=== PATIENT | female | born 1950 | race Caucasian/White ===

== ENCOUNTER → 2023-08-31 08:43 | Outpatient (REF) | payer MEDICARE, OTHER, SELFPAY | LOC: WDC 08:43 | PROVIDERS: ATTENDING PHYSICIAN Surgery; FAMILY PHYSICIAN Internal Medicine | DX: R92.2 Inconclusive mammogram (principal); N64.4 Mastodynia | CPT/HCPCS: 76641 ==

== ENCOUNTER → 2023-10-12 14:41 | Outpatient (REF) | payer MEDICARE, OTHER, SELFPAY | LOC: HWRAD 14:41 | PROVIDERS: ATTENDING PHYSICIAN Internal Medicine | DX: R63.4 Abnormal weight loss (principal); R13.10 Dysphagia, unspecified | CPT/HCPCS: 71046 ==

== ENCOUNTER → 2023-10-16 06:25 | Day surgery (SDC) | payer MEDICARE, OTHER, SELFPAY ==
[2023-10-16 10:50] LABS: Glucose - Point of Care 129 mg/dl (70-99)
== END ==
LOC: GI 06:25
PROVIDERS: ATTENDING PHYSICIAN Internal Medicine
DX: R13.10 Dysphagia, unspecified (principal); R63.4 Abnormal weight loss; K22.2 Esophageal obstruction; K44.9 Diaphragmatic hernia without obstruction or gangrene; K29.50 Unspecified chronic gastritis without bleeding; K22.70 Barrett's esophagus without dysplasia; K31.A0 Gastric intestinal metaplasia, unspecified
CPT/HCPCS: 43239; 88305; 82962; 88342

== ENCOUNTER → 2023-11-02 09:29 | Outpatient (REF) | payer MEDICARE, OTHER, SELFPAY | LOC: HWWDC 09:29 | PROVIDERS: ATTENDING PHYSICIAN Internal Medicine | DX: Z12.31 Encounter for screening mammogram for malignant neoplasm of breast (principal) | CPT/HCPCS: 77063; 77067 ==

== ENCOUNTER → 2024-06-27 12:34 | Outpatient (REF) | payer MEDICARE, OTHER, SELFPAY | LOC: HWRCS 12:34 | PROVIDERS: ATTENDING PHYSICIAN Internal Medicine | DX: R47.89 Other speech disturbances (principal); R29.90 Unspecified symptoms and signs involving the nervous system | CPT/HCPCS: 93306 ==

== ENCOUNTER → 2024-11-02 09:24 | Outpatient (REF) | payer MEDICARE, OTHER, SELFPAY | LOC: HWWDC 09:24 | PROVIDERS: ATTENDING PHYSICIAN Internal Medicine | DX: Z12.31 Encounter for screening mammogram for malignant neoplasm of breast (principal) | CPT/HCPCS: 77063; 77067 ==

== ENCOUNTER → 2024-12-20 09:39 | Outpatient (REF) | payer MEDICARE, OTHER, SELFPAY | LOC: HWRAD 09:39 | PROVIDERS: ATTENDING PHYSICIAN Internal Medicine; FAMILY PHYSICIAN Internal Medicine | DX: R63.4 Abnormal weight loss (principal); R74.8 Abnormal levels of other serum enzymes; K90.9 Intestinal malabsorption, unspecified | CPT/HCPCS: 76700 ==

== ENCOUNTER → 2024-12-21 09:41 | Outpatient (REF) | payer MEDICARE, OTHER, SELFPAY | LOC: HWRAD 09:41 | PROVIDERS: ATTENDING PHYSICIAN Internal Medicine | DX: E78.00 Pure hypercholesterolemia, unspecified (principal); Z78.0 Asymptomatic menopausal state | CPT/HCPCS: 77080 ==

== ENCOUNTER → 2025-01-10 15:34 | Outpatient (REF) | payer MEDICARE, OTHER, SELFPAY | LOC: HWRAD 15:34 | PROVIDERS: ATTENDING PHYSICIAN Internal Medicine; FAMILY PHYSICIAN Internal Medicine | DX: T18.9XXA Foreign body of alimentary tract, part unspecified, initial encounter (principal) | CPT/HCPCS: 74019 ==

== ENCOUNTER 2025-01-25 09:51 | Outpatient (RCR) | payer MEDICARE, OTHER, SELFPAY ==
[2025-01-18 12:00] VITALS: BP 121/80
[2025-01-18] MEDS: INJECTAFER 265 MG IV (12:03)
[2025-01-25 10:00] VITALS: BP 133/78
[2025-01-25] MEDS: INJECTAFER 265 MG IV (10:07)
[2025-01-25 10:46] LABS: Glucose - Point of Care 146 mg/dl (70-99)
[2025-01-25 11:00] VITALS: BP 134/76
== END 2025-01-27 12:37 | disposition home or self-care (01) ==
LOC: OID 09:51
PROVIDERS: ATTENDING PHYSICIAN Internal Medicine; FAMILY PHYSICIAN Internal Medicine
DX: D50.9 Iron deficiency anemia, unspecified (principal); K90.9 Intestinal malabsorption, unspecified; K22.70 Barrett's esophagus without dysplasia
CPT/HCPCS: 82962; 96365; J1439

== ENCOUNTER 2025-04-11 06:26 | Day surgery (SDC) | payer MEDICARE, OTHER, SELFPAY ==
[2025-04-11 10:22] LABS: Glucose - Point of Care 163 mg/dl (70-99)
== END 2025-04-11 12:46 | disposition home or self-care (01) ==
LOC: GI 06:26
PROVIDERS: ATTENDING PHYSICIAN Internal Medicine; FAMILY PHYSICIAN Internal Medicine
DX: Z12.11 Encounter for screening for malignant neoplasm of colon (principal); D50.9 Iron deficiency anemia, unspecified; R63.4 Abnormal weight loss; K57.30 Diverticulosis of large intestine without perforation or abscess without bleeding; K63.89 Other specified diseases of intestine; K44.9 Diaphragmatic hernia without obstruction or gangrene; K22.70 Barrett's esophagus without dysplasia; K20.80 Other esophagitis without bleeding; Z86.0101 Personal history of adenomatous and serrated colon polyps
CPT/HCPCS: 45380; 43239; 82962; 88305; 88342